=== PATIENT | female | born 1985 | race Caucasian/White ===

== ENCOUNTER 2025-10-24 10:08 | Emergency (ER) | payer MEDICARE, MEDICAID ==
[~2025-10-24] VITALS: Ht 167.6 cm; Wt 79.3 kg
[~2025-10-24 10:08] MED LIST: FLUO20CA41 PO
[2025-10-24 10:26] VITALS: TEMP 98.3
--- NOTE | 2025-10-24 10:31 | Physician Documentation ---
History of Present Illness ~ Chief Complaint: Vaginal discharge Stated Complaint: INFECTION Time Seen by MD: 10:31 HPI 40 year old female presents for vaginal discharge. Denies chills or fever, nausea or vomiting. Denies chance of . No new partners since March. Medication Reconciliation Allergies: Coded Allergies: No Known Allergies (Unverified , 10/24/25) Scheduled Fluconazole* (Diflucan*), 1 TAB PO ONCE Fluoxetine Hcl* (Prozac*), 40 MG PO DAILY, (Reported) Metronidazole* (Flagyl*), 1 TAB PO Q12H Review of Systems ROS As stated above in the HPI, otherwise all systems are reviewed and negative. Physical Exam Vital Signs: Temperature: 98.3, Source: Oral, Heart Rate: 89, Respiratory Rate: 18, BP: 138/86, Pulse Oximetry: 99, Weight: 79.300 Oxygen Flow Rate: 0 Physical Exam General: Alert, no apparent distress. Neck: Full range of motion. Respiratory: Lungs clear, no respiratory distress. Chest: No accessory muscle use. Cardiovascular: Regular rate and rhythm, no murmurs. Pelvic: Normal female external genitalia. White/yellow discharge in vault. No CMT. No adnrexal tenderness. Extremities: Normal range of motion, no deformity. Neurologic: Oriented x4. Psychiatric: Normal mood and affect. Skin: Normal color, warm and dry. No edema, no ecchymosis. Procedures Procedures Pelvic exam done, see physical exam. Progress Results/Orders Results/Orders Orders - CLAUDE BURDEN INSPECTOR [employer] EMISSIONS Chlam/Gc Amp Ur (10/24/25 10:31) Marie Prep (Fungal Smear) (10/24/25 10:31) Pelvic Set Up (10/24/25 10:31) Completed Orders - CLAUDE BURDEN NP Syphilis Screen Poc (10/24/25 10:31) Hcg, Ur Ql (10/24/25 10:31) Ua W/Microscopic, Cult If Ind (10/24/25 10:38) Vital Signs 10/24/25 10:26 Temp 98.3 Pulse 89 Resp 18 B/P (MAP) 138/86 Pulse Ox 99 O2 Flow Rate 0 Laboratory Tests Test 10/24/25 10:38 10/24/25 10:52 Urine Specimen Description Non-specified Urine Color Yellow Urine Clarity Slightly cloudy Urine pH 5.5 Urine Specific Sledge >=1.030 Urine Protein Negative Urine Glucose (UA) Negative Urine Ketones Negative Urine Occult Blood Negative Urine Nitrite Negative Urine Bilirubin Negative Urine Urobilinogen 0.2 Urine Leukocyte Esterase Negative Urine RBC 0-2 Urine WBC 0-4 Urine Squamous Epithelial Cells Many Urine Transitional Epithelial Cells Few Urine Bacteria 1+ Urine Mucus Few Urine Culture Indicated Not ind Volume Urine Centrifuged 10 ml Urine HCG, Qualitative Negative Urine Comment Syphilis Serology Negative Medical Decision Making Additional information obtaine: old records Findings Previous visit for sterilization. No ER visits. Urinary Diff Dx:Considerations: Include: Ectopic , Ovarian torsion, PID, UTI, Vaginitis Genital Diff Dx:Considerations: Include: Other Departure Time of Disposition: 11:22 Disposition: HOME / SELF CARE / HOMELESS Impression: Primary Impression: Vaginal discharge Condition: Stable Discharge Instructions: Vaginitis Additional Instructions: Your testing for syphilis, gonorrhea, and chlamydia are pending today. You can obtain these with a primary care followup visit. You are being presumptively treated for bacterial vaginosis and yeast infection based on clinical/pelvic exam today. Please return if worse. Referrals: NO PRIMARY CARE PROVIDER (PCP) Prescriptions Fluconazole* (Diflucan*) 150 Mg Tablet 1 TAB PO ONCE for 1 Day, #1 TAB Prov: CLAUDE BURDEN NP 10/24/25 Metronidazole* (Flagyl*) 500 Mg Tablet 1 TAB PO Q12H for 7 Days, #14 TAB Prov: CLAUDE BURDEN NP 10/24/25 Education Educated: Patient Educated regarding: diagnosis, treatment, need for follow up Signature Scribe Signature: x Attestation: The note accurately reflects work and decisions made by me.Claude Abebe NP 10/24/25 10:33 CLAUDE BURDEN NP Oct 24, 2025 10:31
[2025-10-24 11:05] LABS: LEUKOCYTE ESTERASE ,URINE NEGATIVE (Neg); NITRITES, URINE NEGATIVE (Neg); OCCULT BLOOD,URINE NEGATIVE (Neg)
[2025-10-24 11:06] LABS: URINE HCG NEGATIVE (NEG)
[2025-10-24 11:17] LABS: UA COLLECTION TYPE NON-SPECIFIED
[2025-10-24 11:22] LABS: MUCUS STRANDS FEW /LPF (Neg); SQUAMOUS EPITHELIAL CELL,UR MANY /LPF (FEW)
[2025-10-24 12:00] LABS: SYPHILIS SCREENING TEST POC NEGATIVE (Negative)
[2025-10-24] MEDS ORDERED: METR-159 PO (12:01)
[2025-10-24] MEDS ORDERED: DIF150T PO (12:01)
[2025-10-24 12:22] VITALS: BP 138/86; PULSE 82; RESP 16; O2SAT 94
== END 2025-10-24 12:23 | disposition home or self-care (01) ==
LOC: ER 10:09
DX: N89.8 Other specified noninflammatory disorders of vagina (principal); Z79.899 Other long term (current) drug therapy
CPT/HCPCS: 36415; 81001; 81025; 87491; 87591; 99284; Q0112